=== PATIENT | female | born 1940 | race Caucasian/White ===

== ENCOUNTER 2020-06-27 11:06 | Day surgery (SDC) | payer MEDICARE, SELFPAY ==
[2020-06-27] VITALS (13 sets, daily range): BP systolic 96–147; BP diastolic 71–98; PULSE 60–79; RESP 12–21; TEMP 36.9; O2SAT 94–99; BMI 34.0
--- NOTE | 2020-06-27 | IR_ITS ---
APPROVED REPORT Patient Location: [facility] Specialist: JOLENE Pinzon RT (R) PROCEDURES 1. Pocket formation for Permanent Pacemaker Placement. 2. Placement of an atrial sensing and pacing coil into the right atrial appendage. 3. Placement of a ventricular sensing and pacing coil in the right ventricular apex. 4. Permanent Pacemaker Placement. INDICATION Symptomatic Bradycardia, Sick Sinus Syndrome Informed consent was obtained prior to the procedure. COMPLICATIONS None Estimated Blood Loss: Less than 10 ML TECHNIQUE 1% Lidocaine with epinephrine used to anesthetized the left anterior aspect of the chest. Scalpel was used to make the initial cutaneous incision while electrocautery was used to dissect down tinto the fascia. The fascia was lifted off the pectoralis muscle and digitally manipulated creating a pocket for the pacemaker. The patient was then placed in Trendelenburg position and the subclavian vein was accessed twice via the Selinger technique, there are two wires in the vein. A 6 [place] sheath was placed under fluoroscopic guidance into the subclavian vein over one of the wires while keeping the other wire in place within the subclavian vein. The dilator was removed from the sheath. Using fluoroscopic guidance, the ventricular lead was placed into the right ventricular apex, screwed and secured into place. Electronic interrogation proved acceptable thresholds and voltage within the lead. Using 3-0 silk, the ventricular lead was then secured into place. Lead was secured to the facia using the 3-0 silk. Following this, the sheath was pealed away. An additional 6 [place] fresh sheath and dilator was placed over the existing wire. Using fluoroscopic guidance, the atrial lead was the placed into the right atrial appendage and screwed and secured in place. Electrical interrogation demonstrated acceptable thresholds and voltage number. The atrial lead was then secured into place using 3-0 silk. 1 gram of Ancef was used to flush the pocket. Following the pacemaker generator being secured to the fascia and in place, Monocryl was used to close the subcutaneous layers while shaka were used to close the cutaneous layer. A pressure dressing was placed and the patient was transferred to the postop holding area in stable condition for postoperative care. INTERROGATION Generator Model number: [employer] TAMIKO DR IS-1 L311 Generator Serial number: [id number] Atrial lead model number: Ingevity +IS-1 Bi Positive Fix RA/RV 45 cm 7840 Atrial lead serial number: [id number] P-wave: 2.5 mV Impedence: 650 Ohms Threshold: 1.0V@0.4 ms Right Ventricular lead model number: Ingevity + IS-1 Bi Positive Fix RA/RV 52 cm 7841 Right Ventricular lead serial number: [id number] R-wave: 12.0 mV Impedence: 850 Ohms Threshold: 0.7V@0.4ms Pacing Parameters: Mode: DDDR Base/Max Track: 60ppm/130ppm No diaphragmatic stimulation at 10 volts. IMPRESSION 1. Successful Pocket formation for Permanent Pacemaker Placement. 2. Successful Placement of an atrial sensing and pacing coil into the right atrial appendage. 3. Successful Placement of a ventricular sensing and pacing coil in the right ventricular apex. 4. Successful Permanent Pacemaker Placement. PLAN 1. Post Op Wound Care Electronically signed by : Theo Navarro, 06/27/2020 16:18:15
--- NOTE | 2020-06-27 14:26 | XR_ITS ---
PROCEDURE: XR CHEST PORTABLE CLINICAL HISTORY: Confirm pacemaker/AID placement COMPARISON: No exams were available for comparison FINDINGS: There is cardiomegaly without failure. Bipolar pacemaker has been placed by the left subclavian approach with the leads in good position. No evidence of pneumothorax. The lungs are clear without infiltrates, suspicious nodules, or pleural effusions. No acute bony abnormalities. IMPRESSION: Status post pacemaker placement as described Dictated by: Madhu Woods MD 06/27/2020 15:43 Madhu Woods MD in [facility] 06/27/2020 15:43
--- NOTE | 2020-06-27 14:37 | P.PN_ITS ---
[facility] Anesthesia Checklist - Patient Identification Patient Identification: Arm Band - Structural Data Admitted From: Home Planned Operative Procedure/s: Dual Chamber Pacemaker Consent for Planned Operative Procedure(s) Verified: Yes Verified Documents: Surgical Consent, History and Physical - NPO Status Verified Time NPO: 00:00 - Additional verifications Anesthesia Reactions: No - Airway Assessment C-Spine Mobility Assessed: Yes (mp2) TMJ Mobility Assessed: Yes Dentition: Good Dentition - Neurological Assessment Level of Consciousness: Awake, Alert - Anesthesia Plan Anesthesia Risk discussed: Yes Anesthesia Plan: Verified ASA Class: III Anesthesia Type: MAC [facility] History I have reviewed the patient's past medical history: Yes Medical History: Reports:: Anxiety, Atrial Fibrillation, Hypertension Denies:: Internal Pacemaker, Seizures *Have you ever received a pneumonia vaccine?: Yes *Have you received a flu vaccine this season?: Yes Anesthesia experience/problems:: nac Other Surgeries: Yes: Cholecystectomy, , Other. No: Pacemaker - *Social History Last grade of school completed: High school graduate Alcohol Intake: never Substance Use Type: denies use *Occupational Status:: retired Housing: house *Travel in the last 8 weeks: None Family Hx:: No significant family history
== END 2020-06-27 16:40 | disposition home or self-care (01) ==
LOC: CATHLAB 11:11
PROVIDERS: PCP Nurse Practitioner Family; Visit Provider Internal Medicine
DX: I49.5 Sick sinus syndrome (principal); I48.91 Unspecified atrial fibrillation; I34.0 Nonrheumatic mitral (valve) insufficiency; I10 Essential (primary) hypertension; Z79.899 Other long term (current) drug therapy; Z79.01 Long term (current) use of anticoagulants
CPT/HCPCS: 33208; 71045; C1785; C1898